=== PATIENT | female | born 1945 | race Caucasian/White ===

== ENCOUNTER 2024-01-02 11:48 | Inpatient (IN) | payer OTHER ==
[~2024-01-02] VITALS: Ht 170.2 cm; Wt 52.7 kg
[2024-01-02 11:59] VITALS: BP_SYST 118; PULSE 81; RESP 26; TEMP 98.3; O2SAT 96
[2024-01-02 12:48] LABS: BASOPHILS # (AUTO) 0.1 K/uL (0.0-0.2); BASOPHILS % (AUTO) 0.4 % (0.0-2.0); EOSINOPHILS % (AUTO) 0.1 % (0.0-4.0); HEMATOCRIT 39.4 % (36-48); HEMOGLOBIN 12.9 g/dL (12.0-16.0); LYMPHOCYTES # (AUTO) 0.3 K/uL (1.0-5.5); LYMPHOCYTES % (AUTO) 1.4 % (20.5-51.5); MEAN CORPUSCULAR HEMOGLOBIN 28 pg (27-31); MEAN CORPUSCULAR HGB CONC 33 % (32-36); MEAN CORPUSCULAR VOLUME 85 fL (79.0-98.0); MONOCYTES % (AUTO) 4.8 % (1.7-9.3); NEUTROPHILS # (AUTO) 19.1 K/uL (1.8-7.7); NEUTROPHILS % (AUTO) 93.3 % (40.0-70.0); PLATELET COUNT (AUTO) 650 K/uL (130-430); RED BLOOD CELL COUNT(AUTO) 4.65 MIL/uL (4.2-6.2); RED CELL DISTRIBUTION WIDTH 13.8 % (9.0-15.0); WHITE BLOOD COUNT (AUTO) 20.4 K/uL (4.8-10.8)
[2024-01-02 13:00] LABS: PROTHROMBIN TIME 10.6 SECS (9.5-12.5)
[2024-01-02 13:04] LABS: ALANINE AMINOTRANSFERASE 20 U/L (12-78); ALBUMIN 3.8 g/dL (3.4-4.8); ANION GAP 16 (5-15); ASPARTATE AMINOTRANSFERASE 21 U/L (10-37); BILIRUBIN,DIRECT 0.1 mg/dL (0.0-0.3); CALCIUM 10.4 mg/dL (8.4-11.0); CARBON DIOXIDE 22 mmol/L (23-29); CHLORIDE 100 mmol/L (98-107); CREATINE KINASE, TOTAL 40 U/L (26-192); CREATININE 1.34 mg/dL (0.55-1.30); GLUCOSE 177 mg/dL (74-106); POTASSIUM 3.9 mmol/L (3.5-5.1); SODIUM SERUM 138 mmol/L (136-145); TOTAL BILIRUBIN 0.5 mg/dL (0.0-1.0); TOTAL PROTEIN, SERUM 9.5 g/dL (6.4-8.3); UREA NITROGEN, BLOOD 11 mg/dL (8-21)
[2024-01-02 13:32] LABS: ACETONE, SERUM NEGATIVE (NEGATIVE)
[2024-01-02] MEDS: NACL 0.9% 1,000 ML IV ONE (14:25)
[2024-01-02] MEDS ORDERED: cefTRIAXone 1 GM VIAL ONE (14:28)
[2024-01-02] MEDS: cefTRIAXone 1 GM in D5W 50 ML IV ONE (14:34)
[2024-01-02] MEDS: D5/0.45 NS 1,000 ML IV ONE (17:05)
[2024-01-02 19:32] VITALS: BP_SYST 96; PULSE 78; RESP 18; TEMP 97.8
[2024-01-02 20:00] VITALS: BP_SYST 96; PULSE 78; RESP 18; TEMP 97.8; O2SAT 99
[2024-01-02] MEDS ORDERED: LEVO112T5 PO (22:25)
[2024-01-02] MEDS ORDERED: SIMV-345 PO (22:25)
[2024-01-02] MEDS ORDERED: DONE10TA44 PO (22:25)
[2024-01-02] MEDS ORDERED: ERGO1250 PO (22:25)
[2024-01-02] MEDS ORDERED: [UNRECOGNIZED DRUG - CODE] IV (22:25)
[2024-01-03 00:31] VITALS: BP_SYST 94; PULSE 76; RESP 15; TEMP 96.9; O2SAT 98
[2024-01-03] MEDS ORDERED: NALOXONE HCL 0.4 MG/ML AMP (NARCAN) IVP PRN ×2 (09:00)
[2024-01-03] MEDS ORDERED: HYDROcodone/ACETAMIN 10-325 MG TAB PO PRN (09:00)
[2024-01-03] MEDS ORDERED: HYDROcodone/ACETAMIN 5-325 MG TAB (NORCO/ VICODIN) PO PRN (09:00)
[2024-01-03] MEDS ORDERED: LORazepam 2 MG/ML VIAL IVP PRN (09:00)
[2024-01-03] MEDS ORDERED: ACETAMINOPHEN 325 MG TABLET PO PRN ×2 (09:00→10:45)
[2024-01-03] MEDS ORDERED: ONDANSETRON HCL 4 MG/2 ML VIAL IVP PRN (09:00)
[2024-01-03 09:59] LABS: RED CELL DISTRIBUTION WIDTH 13.7 % (9.0-15.0)
[2024-01-03 10:04] LABS: BASOPHILS % (AUTO) 0.2 % (0.0-2.0); EOSINOPHILS % (AUTO) 0.4 % (0.0-4.0); HEMATOCRIT 34.2 % (36-48); HEMOGLOBIN 11.4 g/dL (12.0-16.0); LYMPHOCYTES # (AUTO) 0.8 K/uL (1.0-5.5); LYMPHOCYTES % (AUTO) 6.4 % (20.5-51.5); MEAN CORPUSCULAR HEMOGLOBIN 28 pg (27-31); MEAN CORPUSCULAR HGB CONC 33 % (32-36); MEAN CORPUSCULAR VOLUME 84 fL (79.0-98.0); MONOCYTES # (AUTO) 0.6 K/uL (0.0-1.0); MONOCYTES % (AUTO) 5.2 % (1.7-9.3); NEUTROPHILS # (AUTO) 10.6 K/uL (1.8-7.7); NEUTROPHILS % (AUTO) 87.8 % (40.0-70.0); PLATELET COUNT (AUTO) 460 K/uL (130-430); RED BLOOD CELL COUNT(AUTO) 4.06 MIL/uL (4.2-6.2); WHITE BLOOD COUNT (AUTO) 12.1 K/uL (4.8-10.8)
[2024-01-03 10:12] LABS: ALANINE AMINOTRANSFERASE 9 U/L (12-78); ANION GAP 12 (5-15); ASPARTATE AMINOTRANSFERASE 22 U/L (10-37); CALCIUM 8.9 mg/dL (8.4-11.0); CARBON DIOXIDE 23 mmol/L (23-29); CHLORIDE 100 mmol/L (98-107); CREATININE 1.14 mg/dL (0.55-1.30); GLUCOSE 100 mg/dL (74-106); POTASSIUM 3.7 mmol/L (3.5-5.1); SODIUM SERUM 135 mmol/L (136-145); TOTAL BILIRUBIN 0.5 mg/dL (0.0-1.0); TOTAL PROTEIN, SERUM 7.5 g/dL (6.4-8.3); UREA NITROGEN, BLOOD 20 mg/dL (8-21)
[2024-01-03] MEDS: LEVOTHYROXINE SODIUM 0.112 MG TABLET PO ONE (10:45)
[2024-01-03 12:15] VITALS: BP_SYST 115; PULSE 58; RESP 16; TEMP 98.1; O2SAT 100
[2024-01-03 16:05] VITALS: BP_SYST 131; BP_SYST 144; PULSE 57; PULSE 64; RESP 16; RESP 18; TEMP 97.5; TEMP 98.1; O2SAT 99
[2024-01-03 20:00] VITALS: BP_SYST 144; PULSE 61; RESP 18; TEMP 98.7; O2SAT 100
[2024-01-03] MEDS: SIMVASTATIN 40 MG TABLET PO SCH (21:20)
[2024-01-03] MEDS: DONEPEZIL HCL 5 MG TABLET (ARICEPT) PO SCH (21:20)
[2024-01-03] MEDS: NORMAL SALINE 5 ML DISP.SYRIN IVF SCH (21:22)
[2024-01-03] MEDS: metroNIDAZOLE 250 mg/NS 50 ML IV SCH (21:23)
[2024-01-04 00:03] VITALS: BP_SYST 132; PULSE 68; RESP 18; TEMP 98.8; O2SAT 98
[2024-01-04 05:41] LABS: BASOPHILS # (AUTO) 0.1 K/uL (0.0-0.2); BASOPHILS % (AUTO) 0.5 % (0.0-2.0); EOSINOPHILS # (AUTO) 0.1 K/uL (0.0-0.4); EOSINOPHILS % (AUTO) 1.3 % (0.0-4.0); HEMATOCRIT 33.8 % (36-48); HEMOGLOBIN 11.3 g/dL (12.0-16.0); LYMPHOCYTES # (AUTO) 1.1 K/uL (1.0-5.5); LYMPHOCYTES % (AUTO) 10.7 % (20.5-51.5); MEAN CORPUSCULAR HEMOGLOBIN 28 pg (27-31); MEAN CORPUSCULAR HGB CONC 34 % (32-36); MEAN CORPUSCULAR VOLUME 84 fL (79.0-98.0); MONOCYTES # (AUTO) 0.8 K/uL (0.0-1.0); MONOCYTES % (AUTO) 7.2 % (1.7-9.3); NEUTROPHILS # (AUTO) 8.5 K/uL (1.8-7.7); NEUTROPHILS % (AUTO) 80.3 % (40.0-70.0); PLATELET COUNT (AUTO) 517 K/uL (130-430); RED BLOOD CELL COUNT(AUTO) 4.02 MIL/uL (4.2-6.2); RED CELL DISTRIBUTION WIDTH 13.6 % (9.0-15.0); WHITE BLOOD COUNT (AUTO) 10.5 K/uL (4.8-10.8)
[2024-01-04 06:17] LABS: ANION GAP 14 (5-15); CALCIUM 9.3 mg/dL (8.4-11.0); CARBON DIOXIDE 22 mmol/L (23-29); CHLORIDE 103 mmol/L (98-107); CREATININE 0.88 mg/dL (0.55-1.30); GLUCOSE 88 mg/dL (74-106); POTASSIUM 3.5 mmol/L (3.5-5.1); SODIUM SERUM 139 mmol/L (136-145); UREA NITROGEN, BLOOD 16 mg/dL (8-21)
[2024-01-04] MEDS: LEVOTHYROXINE SODIUM 0.112 MG TABLET PO SCH (06:28)
[2024-01-04 09:20] VITALS: BP_SYST 123; PULSE 82; RESP 19; TEMP 97.5; O2SAT 98
[2024-01-04] MEDS ORDERED: LOPERAMIDE HCL 2 MG CAPSULE PO PRN (12:30)
[2024-01-04 16:00] VITALS: BP_SYST 124; PULSE 80; RESP 18; TEMP 97; O2SAT 97
[2024-01-04] MEDS: cefTRIAXone 1 GM in D5W 50 ML IV SCH (18:44)
[2024-01-04 20:02] VITALS: BP_SYST 132; PULSE 64; RESP 18; TEMP 98.1; O2SAT 95
[2024-01-04 20:24] LABS: BILIRUBIN,URINE 1+ (NEGATIVE); CLARITY/URINE CLOUDY (CLEAR); COLOR,URINE YELLOW (YELLOW); GLUCOSE,URINE NEGATIVE (NEGATIVE); KETONES,URINE 2+ (NEGATIVE); LEUKOCYTE ESTERASE ,URINE NEGATIVE (NEGATIVE); NITRITE, URINE NEGATIVE (NEGATIVE); PROTEIN URINE TRACE (NEGATIVE); UROBILINOGEN,URINE 0.2 (0.2-1.0)
[2024-01-04 20:35] LABS: BLOOD, URINE TRACE (NEGATIVE)
[2024-01-04 20:36] LABS: BACTERIA,URINE FEW /HPF (None Seen); URINE AMORPHOUS URATE 3+ /HPF (None Seen); WBC,URINE 0-3 /HPF (0-3)
[2024-01-05 00:55] VITALS: BP_SYST 143; PULSE 75; RESP 18; TEMP 97.8
[2024-01-05 05:03] LABS: BASOPHILS % (AUTO) 0.3 % (0.0-2.0); EOSINOPHILS # (AUTO) 0.1 K/uL (0.0-0.4); EOSINOPHILS % (AUTO) 1.4 % (0.0-4.0); HEMATOCRIT 32.7 % (36-48); HEMOGLOBIN 11.2 g/dL (12.0-16.0); LYMPHOCYTES # (AUTO) 1.1 K/uL (1.0-5.5); LYMPHOCYTES % (AUTO) 15.1 % (20.5-51.5); MEAN CORPUSCULAR HEMOGLOBIN 29 pg (27-31); MEAN CORPUSCULAR HGB CONC 34 % (32-36); MEAN CORPUSCULAR VOLUME 84 fL (79.0-98.0); MONOCYTES # (AUTO) 0.6 K/uL (0.0-1.0); MONOCYTES % (AUTO) 8.1 % (1.7-9.3); NEUTROPHILS # (AUTO) 5.7 K/uL (1.8-7.7); NEUTROPHILS % (AUTO) 75.1 % (40.0-70.0); PLATELET COUNT (AUTO) 491 K/uL (130-430); RED CELL DISTRIBUTION WIDTH 13.4 % (9.0-15.0); WHITE BLOOD COUNT (AUTO) 7.5 K/uL (4.8-10.8)
[2024-01-05 05:07] LABS: ERYTHROCYTE SEDIMENTATION RATE 62 MM/HR (0-20)
[2024-01-05 05:29] LABS: ALANINE AMINOTRANSFERASE 9 U/L (12-78); ALBUMIN 2.8 g/dL (3.4-4.8); ANION GAP 14 (5-15); ASPARTATE AMINOTRANSFERASE 17 U/L (10-37); CARBON DIOXIDE 22 mmol/L (23-29); CHLORIDE 105 mmol/L (98-107); CREATININE 0.78 mg/dL (0.55-1.30); GLUCOSE 86 mg/dL (74-106); PHOSPHORUS 3.3 mg/dL (2.7-4.5); POTASSIUM 3.5 mmol/L (3.5-5.1); SODIUM SERUM 141 mmol/L (136-145); TOTAL BILIRUBIN 0.3 mg/dL (0.0-1.0); UREA NITROGEN, BLOOD 20 mg/dL (8-21)
[2024-01-05 07:50] VITALS: BP_SYST 132; PULSE 61; RESP 16; TEMP 97.9; O2SAT 100
[2024-01-05 09:00] VITALS: O2SAT 100
[2024-01-05 12:00] VITALS: BP_SYST 109; PULSE 72; RESP 16; TEMP 97.8; O2SAT 98
[2024-01-05 18:00] VITALS: BP_SYST 106; PULSE 75; RESP 15; TEMP 97.5; O2SAT 99
[2024-01-05 20:02] VITALS: BP_SYST 133; PULSE 70; RESP 18; TEMP 99.4; O2SAT 98
[2024-01-06 00:13] VITALS: BP_SYST 144; PULSE 75; RESP 18; TEMP 97.8
[2024-01-06 05:32] LABS: BASOPHILS % (AUTO) 0.5 % (0.0-2.0); EOSINOPHILS # (AUTO) 0.1 K/uL (0.0-0.4); EOSINOPHILS % (AUTO) 1.9 % (0.0-4.0); HEMATOCRIT 32.6 % (36-48); HEMOGLOBIN 11.1 g/dL (12.0-16.0); LYMPHOCYTES # (AUTO) 1.1 K/uL (1.0-5.5); LYMPHOCYTES % (AUTO) 17.6 % (20.5-51.5); MEAN CORPUSCULAR HEMOGLOBIN 28 pg (27-31); MEAN CORPUSCULAR HGB CONC 34 % (32-36); MEAN CORPUSCULAR VOLUME 83 fL (79.0-98.0); MONOCYTES # (AUTO) 0.6 K/uL (0.0-1.0); MONOCYTES % (AUTO) 10.1 % (1.7-9.3); NEUTROPHILS # (AUTO) 4.4 K/uL (1.8-7.7); NEUTROPHILS % (AUTO) 69.9 % (40.0-70.0); PLATELET COUNT (AUTO) 473 K/uL (130-430); RED BLOOD CELL COUNT(AUTO) 3.92 MIL/uL (4.2-6.2); RED CELL DISTRIBUTION WIDTH 13.6 % (9.0-15.0); WHITE BLOOD COUNT (AUTO) 6.3 K/uL (4.8-10.8)
[2024-01-06 05:38] LABS: ERYTHROCYTE SEDIMENTATION RATE 55 MM/HR (0-20)
[2024-01-06 06:02] LABS: ANION GAP 12 (5-15); CARBON DIOXIDE 23 mmol/L (23-29); CHLORIDE 106 mmol/L (98-107); CREATININE 0.71 mg/dL (0.55-1.30); GLUCOSE 89 mg/dL (74-106); POTASSIUM 3.4 mmol/L (3.5-5.1); SODIUM SERUM 141 mmol/L (136-145); UREA NITROGEN, BLOOD 16 mg/dL (8-21)
[2024-01-06 08:00] VITALS: BP_SYST 135; PULSE 67; RESP 18; TEMP 97.6; O2SAT 99
[2024-01-06] MEDS: POTASSIUM CHLORIDE 20 MEQ TABLET.ER PO ONE (10:50)
[2024-01-06 11:00] VITALS: BP_SYST 135; PULSE 97; RESP 18; TEMP 97.6; O2SAT 99
[2024-01-06 13:04] VITALS: BP_SYST 104; PULSE 67; RESP 19; TEMP 99; O2SAT 95
== END 2024-01-06 14:40 | disposition home or self-care (01) | DRG 871 ==
LOC: SED 11:48 → SMU 14:19
PROVIDERS: ADMIT Preventive Medicine Preventive Medicine/Occupational Environmental Medicine; ATTEND Preventive Medicine Preventive Medicine/Occupational Environmental Medicine
DX: A41.9 Sepsis, unspecified organism (principal); J69.0 Pneumonitis due to inhalation of food and vomit; N17.9 Acute kidney failure, unspecified; E87.20 Acidosis, unspecified; N39.0 Urinary tract infection, site not specified; M81.0 Age-related osteoporosis without current pathological fracture; E88.09 Other disorders of plasma-protein metabolism, not elsewhere classified; E78.5 Hyperlipidemia, unspecified; E55.9 Vitamin D deficiency, unspecified; E03.9 Hypothyroidism, unspecified; D75.839 Thrombocytosis, unspecified; D64.9 Anemia, unspecified; F03.90 Unspecified dementia, unspecified severity, without behavioral disturbance, psychotic disturbance, mood disturbance, and anxiety; Y92.238 Other place in hospital as the place of occurrence of the external cause; W18.39XA Other fall on same level, initial encounter; D72.829 Elevated white blood cell count, unspecified; Z79.899 Other long term (current) drug therapy; Y93.89 Activity, other specified; Y99.8 Other external cause status; R53.81 Other malaise
CPT/HCPCS: 36415; 70450-TC; 71045; 80048; 80053; 80076; 81000; 81001; 81015; 82009; 82272; 82550; 83605; 83735; 84100; 84443; 85025; 85610; 85651; 85730; 87040; 87045-TC; 87046; 87086; 87230; 95816; 96361; 96365; 97112-GP; 97116-GP; 99285; J0696; J3490; J7060